=== PATIENT | male | born 1975 | race Caucasian/White ===

== ENCOUNTER 2017-09-21 21:22 | Emergency (ER) | payer SELFPAY, BC ==
[2017-09-21 21:43] LABS: POC GLUCOSE 160 mg/dL (70-99)
[2017-09-21 21:51] LABS: HEMATOCRIT 45.6 % (39.0-53.0); HEMOGLOBIN 16.2 g/dL (13.0-17.5); ISTAT INR 1.1 (0.9-1.1); ISTAT PT 13.5 Sec (10.0-14.0); MEAN CORPUSCULAR HEMOGLOBIN 34 pg (25-35); MEAN CORPUSCULAR HGB CONC 36 g/dL (31-37); MEAN CORPUSCULAR VOLUME 96 fL (79-100); PLATELET COUNT 299 x10^3/uL (140-400); RED BLOOD COUNT 4.77 x10^6/uL (4.30-5.70); RED CELL DISTRIBUTION WIDTH 13.9 % (11.5-14.5); WHITE BLOOD COUNT 6.2 x10^3/uL (4.0-11.0)
[2017-09-21] MEDS: ONDANSETRON PF 4 MG/2 ML VIAL. IV (21:52)
[2017-09-21 21:59] LABS: PARTIAL THROMBOPLASTIN TIME 31 SEC (24-38); PROTHROMBIN TIME PATIENT 12.3 SEC (11.7-14.0)
[2017-09-21] MEDS: IV NORMAL SALINE 1000ML BAG 1,000 ML IV (22:00)
[2017-09-21 22:03] LABS: ANION GAP 13 (6-14); BLOOD UREA NITROGEN 12 mg/dL (8-26); CALCIUM 8.2 mg/dL (8.5-10.1); CARBON DIOXIDE 27 mmol/L (21-32); CHLORIDE 103 mmol/L (98-107); CREATININE 0.9 mg/dL (0.7-1.3); GLUCOSE 145 mg/dL (70-99); POTASSIUM 3.1 mmol/L (3.5-5.1); SODIUM 143 mmol/L (136-145)
[2017-09-21 22:05] LABS: ETHANOL 196 mg/dL (0-10)
[2017-09-21 22:09] LABS: ALBUMIN 3.7 g/dL (3.4-5.0); ALK PHOS 163 U/L (46-116); ALT (SGPT) 21 U/L (16-63); DIRECT BILIRUBIN 0.1 mg/dL (0.0-0.2); TOTAL BILIRUBIN 0.4 mg/dL (0.2-1.0); TOTAL PROTEIN 7.1 g/dL (6.4-8.2)
[2017-09-21 22:12] LABS: TROPONINI < 0.017 ng/mL (0.000-0.055)
[2017-09-21] MEDS ORDERED: CONTRAST GIVEN MC (22:15)
[2017-09-21 22:16] LABS: BARBITURATES NEG (NEG); BENZODIAZEPINES NEG (NEG); CANNABINOIDS NEG (NEG); COCAINE NEG (NEG); METHADONE NEG (NEG); OPIATES NEG (NEG); PHENCYCLIDINE NEG (NEG)
[2017-09-21 22:17] LABS: AMPHETAMINE/METHAMPHETAMINE NEG (NEG); ETHANOL, URINE POS (NEG)
[2017-09-21] MEDS: IOHEXOL 300 MG/ML 100ML VIAL. IV (22:17)
[2017-09-21 22:18] LABS: CKMB INDEX 0.5 % (0-4); CKMB MASS 0.6 ng/mL (0.0-3.6); CREATINE KINASE 116 U/L (39-308)
[2017-09-21 22:19] LABS: AST (SGOT) 35 U/L (15-37)
[2017-09-21] MEDS ORDERED: ACETAMINOPHEN 500 MG TABLET PO (23:45)
== END 2017-09-22 00:10 | disposition left against medical advice (07) ==
LOC: ER 09-22 00:10
DX: R51 Headache (principal); R41.82 Altered mental status, unspecified; F10.129 Alcohol abuse with intoxication, unspecified; G89.29 Other chronic pain; F17.210 Nicotine dependence, cigarettes, uncomplicated; Z87.820 Personal history of traumatic brain injury
CPT/HCPCS: 36415; 70450; 70496; 70498; 80048; 80076; 80307; 82553; 82962; 84484; 85027; 85610; 85730; 93005; 96361; 96374; 99285-25; 99291-25; G0480; J2405; J7030; Q9967